=== PATIENT | male | born 1970 | race Caucasian/White ===

== ENCOUNTER 2017-03-06 18:01 | Emergency (ER) | payer SELFPAY ==
[~2017-03-06] VITALS: Ht 177.8 cm; Wt 80.0 kg
[2017-03-06 21:22] VITALS: BP 148/98
== END 2017-03-06 21:00 | disposition home or self-care (01) ==
LOC: ER 20:07
DX: M79.661 Pain in right lower leg (principal); M79.662 Pain in left lower leg; X58.XXXA Exposure to other specified factors, initial encounter; Y93.89 Activity, other specified; Y92.89 Other specified places as the place of occurrence of the external cause; Y99.8 Other external cause status
CPT/HCPCS: 93970; 99284